=== PATIENT | male | born 1955 | race Caucasian/White ===

== ENCOUNTER 2022-01-24 10:12 | Emergency (ER) | payer MEDICARE, SELFPAY ==
[2022-01-24] VITALS (26 sets, daily range): BP systolic 133–160; BP diastolic 70–78; PULSE 108–109; RESP 15–16; TEMP 37.6; O2SAT 92–100
--- NOTE | ~2022-01-24 | US_ITS ---
EXAMINATION: US scrotum doppler DATE: 01/24/2022 11:07 INDICATION: Testicular swelling TECHNIQUE: Testicular sonogram utilizing grayscale and Doppler COMPARISON: None. FINDINGS: The right testis measures 4.4 x 2.8 x 3.1 cm. The left testis measures 3.8 x 3.0 x 2.9 cm. Symmetric normal grayscale appearance to both testes. There is normal vascular flow to both testes. The right e pididymis is normal with normal vascular flow. 5 mm anechoic left epididymal head cyst. The left epid idymis is otherwise normal with normal vascular flow. There is no varicocele. Moderate bilateral anec hoic hydroceles. Asymmetric left-sided scrotal edema with left scrotal wall measuring 11 mm in thickn ess relative to 2-3 mm thickness from the right scrotal wall. IMPRESSION: 1. Moderate-sized bilateral hydroceles are nonspecific asymmetric left scrotal wall edema. 2. 5 mm left epididymal head cyst. Bilateral testes and epididymides are otherwise symmetric and norm al in appearance. Reviewed, dictated and finalized at location A. IMPRESSION: 1. Moderate-sized bilateral hydroceles are nonspecific asymmetric left scrotal wall edema. 2. 5 mm left epididymal head cyst. Bilateral testes and epididymides are otherw ise symmetric and normal in appearance.
--- NOTE | 2022-01-24 12:26 | ED.MALEGU ---
HPI - Male Genitourinary General Chief complaint: Urogenital-Male <Archana Medrano PA-C - Last Filed: 01/24/22 20:01> Stated complaint: Testicle Swelling <MICHAELA Roberts Last Filed: 01/24/22 20:01> Time Seen by Provider: 01/24/22 11:17 <Archana Medrano PA-C - Last Filed: 01/24/22 20:01> Source: patient <MICHAELA Roberts Last Filed: 01/24/22 20:01> Mode of arrival: ambulatory <MICHAELA Roberts Last Filed: 01/24/22 20:01> Limitations: no limitations <MICHAELA Roberts Last Filed: 01/24/22 20:01> History of Present Illness HPI Narrative: Patient is a 66-year-old male who presents the ED with report of testicular pain and swelling. Patient reports he has had issues with redness of his scrotum for the past 1+ year. He has been seen by dermatology for this and use several different creams in the past without relief. Over the past 5 to 6 days, he has developed swelling in his testicles, worse in the left. He also reports having aching pain, especially with squatting and walking. He has been trying to get in to see a urologist, but was unable to make an appointment this month, prompting his presentation to the ED today. Denies any fever, chills, nausea, vomiting, abdominal pain, dysuria, hematuria, concern for STDs. <Archana Medrano PA-C - Last Filed: 01/24/22 20:01> Related Data Allergies/Adverse reactions: Allergies Allergy/AdvReac Type Severity Reaction Status Date / Time No Known Allergies Allergy Verified 01/24/22 10:22 <Archana Medrano PA-C - Last Filed: 01/24/22 20:01> Review of Systems Review of Systems: CONSTITUTIONAL: Denies fever, chills, or sweats. CARDIOVASCULAR: Denies chest pain. RESPIRATORY: Denies dyspnea. GASTROINTESTINAL: Denies abdominal pain, nausea, vomiting, rectal bleeding, or diarrhea. GENITOURINARY: Reports testicular pain and swelling. Denies dysuria or hematuria. SKIN: Reports redness to scrotum. MUSCULOSKELETAL: Denies back pain. <Archana Medrano PA-C - Last Filed: 01/24/22 20:01> All systems reviewed & are unremarkable except as noted in HPI and below <Archana Medrano PA-C - Last Filed: 01/24/22 20:01> PMFSH Past Medical History Medical History: Medical History (Updated 01/25/22 @ 00:00 by Branden Shine) No pertinent past medical history <Archana Medrano PA-C - Last Filed: 01/24/22 20:01> Surgical History Surgical History: Surgical History (Updated 01/24/22 @ 19:44 by Archana Medrano PA-C) History of inguinal hernia repair, bilateral History of umbilical hernia repair <Archana Medrano PA-C - Last Filed: 01/24/22 20:01> Social History Social History: Social History (Updated 01/24/22 @ 19:44 by Archana Medrano PA-C) Smoking status: Never smoker <Archana Medrano PA-C - Last Filed: 01/24/22 20:01> Exam Narrative: GENERAL: Well appearing, well-nourished, non-toxic, in no acute distress. HEAD: Normocephalic, atraumatic. NECK: Supple. No adenopathy, no masses. RESPIRATORY: Airway patent, respirations nonlabored. Clear to auscultation bilaterally, no rales, rhonchi, wheezing. CARDIOVASCULAR: Regular rate and rhythm without murmurs, rubs, or gallops. Peripheral pulses 2+ and equal bilaterally. ABDOMINAL: Soft, nontender, nondistended, no hepatosplenomegaly. Normoactive BS. TESTICULAR: Diffuse erythema to entirety of scrotum. No lesions or focal abscesses. No warmth. Significant swelling to scrotum to about size of softball, swelling worse of left testicle vs right. TTP with manipulation and lifting of scrotum. No significant point tenderness over epididymis bilaterally. MUSCULOSKELETAL: Moves all extremities. Strength/ROM intact without gross deformities or TTP. No edema. SKIN: Warm, dry, normal color. No rashes. NEURO: A&O X3. Speech clear. Cranial nerves II-XII grossly intact. Steady gait. No ataxic movements. PSYCHIATRIC: Appropriate mood and affect. Normal interaction. <Archana Medrano PA
[2022-01-24 12:33] LABS: Basophils Absolute Auto 0.1 K/mm3 (0.0-0.1); Basophils Percent Auto 0.4 % (0.2-1.2); Eosinophils Percent Auto 0.2 % (0-4.4); Hematocrit 43.2 % (42.0-52.0); Hemoglobin 14.5 g/dL (14.0-18.0); Immature Granulocyte Absolute 0.08 K/mm3 (0.00-0.031); Immature Granulocyte Percent A 0.6 % (0-0.5); Lymphocytes Absolute Auto 0.49 K/mm3 (0.9-3.2); Lymphocytes Percent Auto 3.6 % (18.3-44.2); Mean Corpuscular HGB Conc 33.6 g/dl (32-36); Mean Corpuscular Hemoglobin 29.9 pg (26-34); Mean Corpuscular Volume 89.1 fl (80-100); Monocytes Absolute Auto 1.2 K/mm3 (0.1-0.6); Monocytes Percent Auto 8.5 % (2.6-8.5); Neutrophils Absolute Auto 11.9 K/mm3 (1.3-6.7); Neutrophils Percent Auto 86.7 % (45.5-73.1); Platelet Count Result 225 k/mm3 (150-375); Red Blood Count 4.85 M/mm3 (4.6-6.20); Red Cell Distribution Width 13.7 % (11.5-14.5); White Blood Count 13.7 K/mm3 (4.5-10.0)
[2022-01-24 12:43] LABS: Alanine Aminotransferase 17 U/L (6-50); Albumin Level 3.4 g/dL (3.5-5.1); Alkaline Phosphatase 116 U/L (38-126); Anion Gap 8 mmol/L (8-16); Aspartate Amino Transferase 23 U/L (17-59); Bilirubin,Total 1.1 mg/dL (0.2-1.3); Blood Urea Nitrogen 12 mg/dL (9-20); Calcium 8.1 mg/dL (8.4-10.2); Carbon Dioxide 25 mmol/L (22-30); Chloride 99 mmol/L (98-107); Estimated CRCL calculation 62 ml/min; Estimated Glomerular Filt Rate > 60; Glucose 103 mg/dL (65-110); Potassium 3.5 mmol/L (3.4-5.0); Sodium 132 mmol/L (137-145)
[2022-01-24 13:44] LABS: Appearance Urine Clear (Clear); Bilirubin Urine 1+ (Negative); Color Urine Amber (Yellow); Glucose Urine UA Negative (Negative); Ketones Urine Negative (Negative); Leukocyte Esterase Ur Negative LEU/UL (Negative); Nitrate Urine Negative (Negative); Protein Urine 2+ mg/dL (Negative); Specific Grav Ur 1.015 (1.001-1.035)
[2022-01-24 13:52] LABS: Bacteria Urine Trace /hpf; Mucus Urine Rare /lpf; RBC Urine 0-2 /hpf (0-2); WBC Urine 0-3 /hpf
[2022-01-24 14:01] LABS: Add Urine Microscopic? YES; Blood Urine Trace-Intact (Negative)
== END 2022-01-24 15:10 | disposition home or self-care (01) ==
PROVIDERS: Physician Assistant; Emergency Provider Emergency Medicine
DX: N43.3 Hydrocele, unspecified (principal); N50.3 Cyst of epididymis
CPT/HCPCS: 36415; 76870; 80053; 81001; 85025; 93976; 99284